=== PATIENT | male | born 1950 | race Asian ===

== ENCOUNTER 2017-09-21 09:32 | Outpatient (CLI) | payer BC ==
[2017-09-21] MEDS ORDERED: IOPAMIDOL-300 50 ML VIAL ONE (09:44)
[2017-09-21] MEDS ORDERED: IOPAMIDOL-300 100 ML VIAL ONE (09:44)
[2017-09-21] MEDS ORDERED: IOPAMIDOL-300 50 ML VIAL PO ONE (11:16)
[2017-09-21] MEDS ORDERED: IOPAMIDOL-300 100 ML VIAL IVP ONE (11:16)
--- NOTE | 2017-09-22 00:15 | CT Report ---
EXAM: CT ABDOMEN AND PELVIS EXAM DATE: 09/21/2017 10:38 AM. CLINICAL HISTORY: Persistent abdominal pain. COMPARISONS: None. TECHNIQUE: Routine helical CT imaging was performed through the abdomen and pelvis. IV contrast: 100 cc of Isovue-300. Enteric contrast: Yes. Reconstructions: Coronal and sagittal. In accordance with CT protocol optimization, one or more of the following dose reduction techniques w ere utilized for this exam: automated exposure control, adjustment of mA and/or KV based on patient s ize, or use of iterative reconstructive technique. FINDINGS: Lung Bases: Mild left base atelectasis/scarring. Liver: Normal. No masses. Gallbladder/Bile Ducts: Unremarkable. Spleen: Normal. Pancreas: Normal. Adrenal Glands: Normal. Kidneys: Normal. No masses or hydronephrosis. Peritoneal Cavity/Bowel: Normal. No free fluid, free air or adenopathy. No masses or acute inflammato ry process. The appendix is well visualized and normal. Pelvic Organs: Normal. The bladder and visualized pelvic organs are within normal limits. Vasculature: No aneurysms or other significant abnormality. Bones: No significant abnormality. Other: None. IMPRESSION: Normal abdomen and pelvis CT. [facility] Referring Provider Line: [phone] SITE ID: [id number]
== END 2017-09-21 09:33 | disposition home or self-care (01) ==
LOC: LAB 09:32
PROVIDERS: ATTEND Internal Medicine
DX: R10.9 Unspecified abdominal pain (principal)
CPT/HCPCS: 74177; 82565; Q9967; 36415

== ENCOUNTER 2018-01-28 13:31 | Emergency (ER) | payer OTHER, BC ==
[2018-01-28] MEDS ORDERED: TETANUS/DIPHTHERIA/PERTUSSIS 0.5 ML SYRINGE IM ONE (15:33)
[2018-01-28] MEDS ORDERED: LIDOCAINE 2% 10 ML MDV SUBQ STA (16:15)
[2018-01-28] MEDS ORDERED: ceFAZolin 1 GM VIAL IM STA (16:15)
--- NOTE | 2018-01-28 16:25 | XRAY Report ---
Reason: finger laceration Procedure Date: 01/28/2018 Accession Number: [id number] / [id number] Procedure: XR - Finger(s) LT CPT Code: FULL RESULT: EXAM: LEFT FIFTH FINGER DIGIT RADIOGRAPHY EXAM DATE: 01/28/2018 04:09 PM. CLINICAL HISTORY: Crush injury. Pain. COMPARISON: None. TECHNIQUE: 3 views. FINDINGS: Bones: Acute comminuted slightly displaced fracture involving the majority of the fifth distal phalangeal tuft. Acute 2 x 3 mm nondisplaced avulsion fracture through the lateral aspect base fifth distal phalanx. Joints: Mild inflammatory arthropathy incidentally noted at the third PIP joint. Soft Tissues: Moderate edema distal third of the fifth finger. IMPRESSION: 1. Crush fracture fifth distal phalangeal tuft. 2. Tiny avulsion fracture base fifth distal phalanx. [facility]
--- NOTE | 2018-01-28 16:39 | ED Physician Documentation ---
PD HPI UPPER EXT INJURY - Stated complaint Stated Complaint: L SMALL FINGER LAC - Chief complaint Chief Complaint: Laceration - History obtained from History obtained from: Patient - History of Present Illness Location: Left, Finger (5th) Where injury occurred: Work Timing - duration: Hours (1) Timing - details: Abrupt onset Pain level max: 5 Pain level now: 4 Improved by: Rest Worsened by: Moving, Palpating Associated symptoms: No: Weakness, Numbness Contributing factors: No: Anticoagulated - Additonal information Additional information: laceration to the L 5th digit. Moving a desk and lacerated the L 5th digit. Pt is right handed Review of Systems Neurologic: denies: Focal weakness, Numbness PD PAST MEDICAL HISTORY - Past Medical History Past Medical History: Yes Cardiovascular: Hypertension Respiratory: None Endocrine/Autoimmune: HyPOthyroidism GI: GERD, Colon polyps : None HEENT: None Psych: None Musculoskeletal: None Derm: Eczema - Past Surgical History Past Surgical History: Yes General: Colonoscopy - Present Medications Home Medications: Ambulatory Orders Medication Instructions Recorded Confirmed Levothyroxine [Synthroid] 1 tab ORAL DAILY 05/03/14 05/03/14 Lisinopril 1 tab ORAL DAILY 05/03/14 05/03/14 Cephalexin [Keflex] 500 mg PO Q6H #28 capsule 01/28/18 - Allergies Allergies/Adverse Reactions: Allergies Allergy/AdvReac Type Severity Reaction Status Date / Time Latex, Natural Rubber Allergy Rash Verified 01/28/18 13:46 - Social History Does the pt smoke?: No Smoking Status: Never smoker Does the pt drink ETOH?: No Does the pt have substance abuse?: No PD ED PE NORMAL - Vitals Vital signs reviewed: Yes - General General: Alert and oriented X 3, No acute distress - Derm Derm: Warm and dry - Neuro Neuro: Alert and oriented X 3 PD ED PE EXPANDED - Extremities EBONI UE/Hands Visual: 1 - laceration (through the fingernail and down to bone, NVI. 1cm) Results - Vitals Vitals: Vital Signs - 24 hr 01/28/18 01/28/18 13:43 16:56 Temperature 36.9 C 36.6 C Heart Rate 105 H 86 Respiratory 16 16 Rate Blood Pressure 191/101 H 176/76 H O2 Saturation 96 99 Oxygen O2 Source Room air - Rads (name of study) L 5th digit xray Radiology: Prelim report reviewed, EMP read contemporaneously, See rad report ( comminuted fracture distal tuft) Procedures - Laceration (location) L 5th digit Length in cm: 1 Wound type: Linear, Clean, Other (deep into finger) Neurovascular status: Sensory intact, Motor intact, Vascular intact Tendon involvement: Other (no tendon injury) Anesthesia: Lidocaine 2% (transthecal block) Wound Preparation: Irrigated copiously NS, Wound explored, To the base Skin layer closure: Nylon, Dermabond Other: Patient tolerated well, No complications, Neurovascular intact, Dressing applied (splint), Tetanus booster given (tdap) Complexity: Simple PD MEDICAL DECISION MAKING - ED course Complexity details: reviewed results, re-evaluated patient, considered differential, d/w patient ED course: Patient with a L 5th digit laceration, through the mid nail and deep. Distal tuft fracture present. NVI. Laceration repaired. Nail repaired with dermabond. Splint applied. Ancef given. Tdap given. Patient counseled regarding wound care. and signs of infection. Patient counseled regarding signs and symptoms for which I believe and urgent re-evaluation would be necessary. Patient with good understanding of and agreement to plan and is comfortable going home at this time This document was made in part using voice recognition software. While efforts are made to proofread this document, sound alike and grammatical errors may occur. - Sepsis Event Vital Signs: Vital Signs - 24 hr 01/28/18 01/28/18 13:43 16:56 Temperature 36.9 C 36.6 C Heart Rate 105 H 86 Respiratory 16 16 Rate Blood Pressure 191/101 H 176/76 H O2 Saturation 96 99 Oxygen O2 Source Room air Departure - Departure Disposition: 01 Home, Self Care Clinical Impression: Open fracture of finger Qualifiers: Encounter type: initial encounter Finger: little finger Phalanx: distal Fracture alignment: displaced Laterality: left Qualified Code(s): S62.637B - Displaced fracture of distal phalanx of left little finger, initial encounter for open fracture Condition: Good Instructions: ED Fx Finger Open Follow-Up: Mariana Kenyon MD [Primary Care Provider] - Within 1 week Prescriptions: Cephalexin [Keflex] 500 mg PO Q6H #28 capsule Comments: Return if you worsen. Keep the splint on until released by your doctor. Clean the wound gently twice daily. Do not apply any antibiotic ointment to the Dermabond as this will dissolve the glue. Follow-up with your doctor for further care. Return especially for redness, swelling or drainage from the wound. Take all antibiotics as directed Discharge Date/Time: 01/28/18 16:50
[2018-01-28 16:57] VITALS: BP 176/76
== END 2018-01-28 16:50 | disposition home or self-care (01) ==
LOC: ED 13:31
DX: S61.217A Laceration without foreign body of left little finger without damage to nail, initial encounter (principal); W26.8XXA Contact with other sharp object(s), not elsewhere classified, initial encounter; Y99.0 Civilian activity done for income or pay; Z23 Encounter for immunization; I10 Essential (primary) hypertension; E03.9 Hypothyroidism, unspecified
CPT/HCPCS: 1040M; 12001; 73140; 90471; 90715; 96372; 99283

== ENCOUNTER 2020-12-27 15:47 | Outpatient (CLI) | payer OTHER ==
--- NOTE | 2020-12-27 16:23 | CT Report ---
PROCEDURE: Abdomen/Pelvis WO INDICATIONS: R FLANK PAIN TECHNIQUE: Noncontrast 5 mm thick sections acquired from the diaphragms to the symphysis. 5 mm coronal and sagi ttal reformats were then performed. For radiation dose reduction, the following was used: automated exposure control, adjustment of mA and/or kV according to patient size. COMPARISON: None. FINDINGS: Image quality: Excellent. ABDOMEN: Lung bases: Lung bases are clear. Heart size is normal. Solid organs: Liver and spleen are normal in size. Gallbladder appears normal Pancreas is normal i n contours. No adrenal nodules. Kidneys are normal in size, without hydronephrosis or nephrolithias is. Peritoneum and bowel: Unenhanced bowel loops demonstrate normal wall thickness and caliber. No free fluid or air. Nodes and vessels: No retroperitoneal or mesenteric adenopathy by size criteria. Aorta and inferior vena cava are normal in caliber. Miscellaneous: No ventral hernias. Generalized moderate colonic obstipation. PELVIS: Genitourinary: Bladder wall thickness is normal. Miscellaneous: No inguinal hernias or adenopathy. Normal appendix found right lower quadrant. Gener alized colonic obstipation. Bones: No suspicious bony lesions. No vertebral body compression fractures. IMPRESSION: No urinary tract stone found, normal appendix identified. Generalized moderate colonic obstipation in volving the abdomen and pelvis on the right and the left. Reviewed by: Sanjeev Smith MD on 12/27/2020 4:21 PM PDT Approved by: Sanjeev Smith MD on 12/27/2020 4:21 PM PDT Station ID: [id number]
== END 2020-12-27 15:48 | disposition home or self-care (01) ==
LOC: DI 15:47
PROVIDERS: ATTEND Internal Medicine
DX: K59.00 Constipation, unspecified (principal)

== ENCOUNTER 2022-09-17 10:59 | Outpatient (CLI) | payer OTHER ==
--- NOTE | 2022-09-17 17:46 | XRAY Report ---
PROCEDURE: Chest 2 View X-Ray INDICATIONS: ACUTE COUGH TECHNIQUE: 2 views of the chest were acquired. COMPARISON: None. FINDINGS: Surgical changes and devices: None. Lungs and pleura: Biapical pulmonary scarring present. Mild hyperinflation and chronic interstitial changes Mediastinum: Mediastinal contours appear normal. Heart size is normal. Bones and chest wall: No suspicious bony lesions. Overlying soft tissues appear unremarkable. IMPRESSION: Chronic interstitial changes without acute infiltrate Reviewed by: Mohinder Kunz MD on 09/17/2022 4:44 PM [facility]DT Approved by: Mohinder Kunz MD on 09/17/2022 4:44 PM AKDT Station ID: [id number]
== END 2022-09-17 11:00 | disposition home or self-care (01) ==
LOC: DI 10:59
PROVIDERS: ATTEND Internal Medicine
DX: R05.1 Acute cough (principal)